=== PATIENT | male | born 1940 | race Caucasian/White ===

== ENCOUNTER 2018-08-13 20:26 | Emergency (ER) | payer OTHER ==
[~2018-08-13] VITALS: Ht 177.8 cm; Wt 63.5 kg
[2018-08-13] MEDS ORDERED: DEPAKOTE SPRIN125 MG PO (20:47)
[2018-08-13] MEDS ORDERED: TRAZODONE HCL50 MG PO (20:47)
[2018-08-13] MEDS ORDERED: ARICEPT 5 MG TAB5 MG PO (20:48)
[2018-08-13] MEDS ORDERED: LEXAPRO 10 MG T10 M1 PO (20:49)
[2018-08-13 20:56] LABS: ABSOLUTE EOSINOPHILS 0.1 thou/uL (0.0-0.7); ABSOLUTE LYMPHOCYTES 2.4 thou/uL (0.8-5.3); ABSOLUTE MONOCYTES 0.5 thou/uL (0.0-1.2); BASOPHILS 0.8 %; EOSINOPHILS 1.5 %; HEMATOCRIT 39.8 % (42.0-52.0); HEMOGLOBIN 13.9 gm/dL (14.0-18.0); LYMPHOCYTES 40.4 %; MCH 33.6 pg (26.0-34.0); MCHC 34.8 g/dL (28.0-37.0); MCV 96.5 fL (80.0-100.0); MONOCYTES 7.6 %; MPV 7.3 fl. (7.2-11.1); NUCLEATED RBCS 0 /100WBC; PLATELET COUNT* 192 thou/uL (150-400); POLYS 49.7 %; RBC 4.13 mil/uL (4.50-6.00); RDW-CV 12.5 % (10.5-14.5); WBC 5.9 thou/uL (4.0-11.0)
[2018-08-13] MEDS ORDERED: XALATAN2.5 ML OPHTHALMIC (20:57)
[2018-08-13] MEDS ORDERED: ATIVAN0.5 MG PO (20:57)
[2018-08-13 21:00] LABS: ANION GAP 10 mmol/L (7-16); BUN 14 mg/dL (7-18); CALCIUM 8.6 mg/dL (8.5-10.1); CHLORIDE 104 mmol/L (98-107); CO2 25 mmol/L (21-32); CREATININE 1.1 mg/dL (0.6-1.3); GLUCOSE 101 mg/dL (70-99); POTASSIUM 4.1 mmol/L (3.5-5.1); SODIUM 139 mmol/L (136-145)
[2018-08-13] MEDS ORDERED: MAALOX ADVANCE355 M1 (21:02)
[2018-08-13] MEDS ORDERED: MAPAP325 MG PO (21:05)
[2018-08-13 21:06] LABS: INR 1.1; PROTIME 11.6 Seconds (9.20-11.50)
[2018-08-13] MEDS ORDERED: NAMENDA 10 MG T10 MG PO (21:06)
[2018-08-13] MEDS ORDERED: MEGESTROL400 MG/11 PO (21:06)
[2018-08-13] MEDS ORDERED: QUETIAPINE FUM100 MG PO (21:07)
[2018-08-13] MEDS ORDERED: MILK OF MA400 MG/5 M PO (21:07)
[2018-08-13 21:08] LABS: URINE BILIRUBIN NEGATIVE (Negative); URINE BLOOD NEGATIVE (Negative); URINE CLARITY CLEAR; URINE COLOR YELLOW; URINE GLUCOSE-RANDOM NEGATIVE (Negative); URINE KETONES NEGATIVE (Negative); URINE LEUKOCYTES-REFLEX NEGATIVE (Negative); URINE NITRITE-REFLEX NEGATIVE (Negative); URINE PROTEIN NEGATIVE (Negative); URINE SPECIFIC GRAVITY 1.025 (1.005-1.030)
[2018-08-13] MEDS ORDERED: SEROQUEL 25 MG25 M1 PO (21:08)
[2018-08-13 21:11] LABS: ALBUMIN 3.3 g/dL (3.4-5.0); ALKALINE PHOSPHATASE 48 U/L (46-116); NT-PRO BRAIN NAT PEPTIDE 368 pg/mL (<300); SGOT 28 U/L (15-37); SGPT 26 U/L (30-65); TOTAL BILIRUBIN 0.4 mg/dL (<0.1-1.0); TOTAL PROTEIN 6.7 g/dL (6.4-8.2); TROPONIN-I LEVEL <0.06 ng/mL (<0.06)
[2018-08-14 01:34] VITALS: BP 110/62
--- NOTE | 2018-08-14 10:08 | EKG ---
[place] [address] ELECTROCARDIOGRAM REPORT Name: MELBA KELLER Room: [facility].#: [id number] Admission: 08/13/18 Attend Phys: Discharge: 08/14/18 Date of : 40 Report #: [id number] THIS REPORT FOR: //name// [facility] ED Test Date: 2018-08-13 Test Time: 22:04:26 Pat Name: MELBA KELLER Department: Room: Gender: M [employer] Licensing Worker: : 1940 Requested By: Jeanie Mckeon Order Number: [id number] MD: Paul Otero Measurements Intervals Simpson Rate: 67 P: 8 OR: 141 QRS: -44 QRSD: 107 T: 47 QT: 422 QTc: 446 Interpretive Statements Sinus rhythm Incomplete RBBB and LAFB Baseline wander in lead(s) V3 No previous ECG available for comparison Electronically Signed On 08-14-2018 10:07:52 CDT by Paul Otero [email or web address] <ELECTRONICALLY SIGNED> By: Paul Otero MD, [facility] 08/14/18 [id number] Paul Otero MD, FACC /EPI
== END 2018-08-14 01:35 ==
LOC: M.ERS 20:26
PROVIDERS: Emergency Medicine
DX: R45.1 Restlessness and agitation (principal); Z88.2 Allergy status to sulfonamides; Z88.8 Allergy status to other drugs, medicaments and biological substances